=== PATIENT | female | born 1995 | race African-American/Black ===

== ENCOUNTER → 2019-04-10 | Outpatient (CLI) | payer BC ==
--- NOTE | 2019-04-10 16:58 | KCIC ---
PELVIS W/TV History: Pelvic pain, history of ovarian cyst Comparison: None. Findings: Multiple transabdominal sonographic images of the pelvis are submitted. Pelvic structures are poorly delineated. Transvaginal ultrasound: Multiple transvaginal sonographic images of the pelvis are submitted. There is no free fluid. Left ovary is suboptimally visualized due to bowel gas, estimated about 2.5 x 1.3 x 2.4 cm with normal color flow and low resistance vascularity in this region. Right ovary measured 3.3 x 2.1 x 2 cm with normal low resistance vascularity. Uterus measured 6.9 x 2.8 x 3.3 cm. Endometrium is within normal limits at 0.4 cm. Impression: 1. No significant abnormality is demonstrated. Left ovary is suboptimally visualized due to bowel gas. Electronically signed by: Christian Cummings MD (04/10/2019 4:55 PM) [id number]
== END | disposition home or self-care (01) ==
LOC: KCIC US 09:30
PROVIDERS: ATTEND Obstetrics & Gynecology
DX: R10.2 Pelvic and perineal pain (principal)
CPT/HCPCS: 76830; 76856